=== PATIENT | female | born 1965 | race Caucasian/White ===

== ENCOUNTER 2017-05-04 12:34 | Inpatient (IN) | payer OTHER ==
[2017-05-04] VITALS (14 sets, daily range): BP systolic 121–152; BP diastolic 58–86; PULSE 62–84; RESP 17–22; Ht 152.4 cm; Wt 75.5 kg
[~2017-05-04] VITALS: Ht 152.4 cm; Wt 75.5 kg
[~2017-05-04 12:34] MED LIST: ASPIRIN 81 MG TAB ONE
[2017-05-04] MEDS ORDERED: ASPIRIN 325 MG TAB PO STA (12:55)
[2017-05-04 13:08] LABS: WHITE BLOOD COUNT 8.2 10^3/ul (4.8-10.8)
[2017-05-04 13:09] LABS: BASOPHIL # 0.1 10^3/ul (0.0-0.1); BASOPHILS % 0.9 % (0.0-2.0); EOSINOPHILS # 0.1 10^3/ul (0.0-0.5); HEMATOCRIT 44.3 % (37.0-47.0); LYMPHOCYTES # 3.3 10^3/ul (0.8-2.9); LYMPHOCYTES % 39.9 % (15.0-51.0); MEAN CORPUSCULAR HEMOGLOBIN 29.9 pg (29.0-33.0); MEAN CORPUSCULAR HGB CONC 33.9 g/dl (32.0-37.0); MEAN CORPUSCULAR VOLUME 88.2 fl (82.0-101.0); MEAN PLATELET VOLUME 11.3 fl (7.4-10.4); MONOCYTE # 0.6 10^3/ul (0.3-0.9); MONOCYTES % 6.9 % (0.0-11.0); NEUTROPHILS % 51.1 % (39.0-77.0); PLATELET COUNT 250 10^3/UL (140-415); RED BLOOD COUNT 5.02 10^6/ul (4.20-5.40); RED CELL DISTRIBUTION WIDTH 12.6 % (11.5-14.5)
[2017-05-04 13:21] LABS: INR 0.92; PROTIME 12.4 Sec (12.2-14.2)
[2017-05-04 13:22] LABS: PARTIAL THROMBOPLASTIN TIME 28.7 Sec (25.0-35.0)
[2017-05-04 13:24] LABS: ANION GAP 16 (8-16); BLOOD UREA NITROGEN 12 mg/dl (7-20); CALCIUM 9.8 mg/dl (8.4-10.2); CARBON DIOXIDE 25 mmol/L (21-31); CHLORIDE 104 mmol/L (97-110); CREATININE 0.57 mg/dl (0.44-1.00); GLUCOSE 77 mg/dl (70-220); SODIUM 141 mmol/L (135-144)
--- NOTE | 2017-05-04 13:25 | ERA ---
ER Documentation Chief Complaint Date/Time DATE: 05/04/17 TIME: 13:22 Chief Complaint pt bib self with c/o chest pain starting yesterday, same last wk HPI This 51-year-old female presents to the emergency room for evaluation of chest pain. This patient stated that her chest pain started 1 week ago and has been intermittent worse with exertion. She states that it is located in the center of her chest and describes as a pressure-like sensation with mild radiation to her left arm associated with mild shortness of breath and nausea. This patient presented to the emergency room waiting room where she had an EKG done that showed ST elevation MS ROS All systems reviewed and are negative except as per history of present illness. Allergies Allergies: Coded Allergies: Penicillins (Verified Allergy, Unknown, 05/04/17) PMhx/Soc Medical and Surgical Hx: pt denies Medical Hx, pt denies Surgical Hx Hx Alcohol Use: No Hx Substance Use: No Hx Tobacco Use: No Smoking Status: Never smoker Physical Exam Vitals Vital Signs Date Time Temp Pulse Resp B/P Pulse Ox O2 Delivery O2 Flow Rate FiO2 05/04/17 13:09 84 18 168/85 100 Nasal Cannula 2.0 05/04/17 12:55 Nasal Cannula 2 05/04/17 12:39 98.3 65 18 170/77 100 Physical Exam INITIAL VITAL SIGNS: Reviewed by me GENERAL: The patient is well developed and appropriate for usual state of health in no apparent distress HEENT: Pupils equal, round, and reactive to light. EOMI. There is no scleral icterus. NECK: C-spine is soft and supple, there is no meningismus. There is no cervical lymphadenopathy. LUNGS: Clear to auscultation bilaterally. There are no rales, wheezes or rhonchi. HEART: Regular rate and rhythm, no murmurs, clicks, rubs or gallops. ABDOMEN: Soft, non-tender, non-distended. There are bowel sounds in all four quadrants. No rebound or guarding. EXTREMITIES: There is no peripheral cyanosis or edema. No focal swelling or erythema. NEUROLOGICAL: The patient moves all four extremities with 5/5 strength. Cranial nerves II - XII are intact. Normal gait. Alert and oriented SKIN: There is no apparent rash or petechiae. HEME/LYMPHATIC: There is no evidence of excessive bruising or lymphedema. PSYCHIATRIC: The patient does not appear anxious or depressed. Result Diagram: 05/04/17 1300 Results 24 hrs Laboratory Tests Test 05/04/17 13:00 White Blood Count 8.210^3/ul Red Blood Count 5.0210^6/ul Hemoglobin 15.0g/dl Hematocrit 44.3% Mean Corpuscular Volume 88.2fl Mean Corpuscular Hemoglobin 29.9pg Mean Corpuscular Hemoglobin Concent 33.9g/dl Red Cell Distribution Width 12.6% Platelet Count 78177^3/UL Mean Platelet Volume 11.3fl Neutrophils % 51.1% Lymphocytes % 39.9% Monocytes % 6.9% Eosinophils % 1.0% Basophils % 0.9% Nucleated Red Blood Cells % 0.0/100WBC Neutrophils # (Manual) 4.210^3/ul Lymphocytes # 3.310^3/ul Monocytes # 0.610^3/ul Eosinophils # 0.110^3/ul Basophils # 0.110^3/ul Nucleated Red Blood Cells # 0.010^3/ul Prothrombin Time 12.4Sec Prothrombin Time Ratio 1.0 INR International Normalized Ratio 0.92 Activated Partial Thromboplast Time 28.7Sec Current Medications Medications (Trade) Dose Ordered Sig/Jesi Route PRN Reason Start Time Stop Time Status Last Admin Dose Admin Aspirin (Aspirin) 325 mg ONCE STAT PO 05/04/17 12:55 05/04/17 12:56 DC 05/04/17 13:17 Procedures/MDM EKG: Rate/Rhythm: Acute MS QRS, ST, T-waves: Acute inferior ST elevation MS Impression: Acute inferior ST elevation MS Chest X-ray 1V Interpreted by me: Soft Tissue: No acute abnormalities Bones: No acute abnormalities Mediastinum/Cardiac Silhouette/Lungs: [No acute abnormalities]\ This 51-year-old female presents to the ER for evaluation of chest pain which is been intermittent for the past week worse with exertion and centralized. When this patient arrived in the waiting room she did have an EKG done. She arrived at 12:33 PM and had an EKG done at 12:[address] elevation MS. I did speak with this patient and she states that she has no family history of any heart disease, she has no medical problems and is on any medications. A code STEMI was called at 12:49 PM and I spoke to our back sizer Dr. Holt at 12:15 PM. He accepts the patient. The patient went to [facility] 1:21 PM. There was a delay in getting the patient to the [facility] due to the fact that there was another patient on the [facility] table which had to be removed. This patient will be admitted under panel physician Dr. Alvarado Critical Care: Excluding all billable procedures Time: 33 minutes Treatments/Evaluations: Close monitoring and treatment of unstable vital signs, cardiorespiratory, and neurologic status, while maintaining tight balance of fluid, respiratory, and cardiac interventions. Departure Diagnosis: Primary Impression: ST elevation MS (STEMI) Additional Impression: Chest pain Condition: Serious FERNANDOBEAR MCNEILL May 04, 2017 13:25
--- NOTE | 2017-05-04 13:29 | RADRPT ---
PROCEDURE: Chest x-ray CLINICAL INDICATION: Chest pain TECHNIQUE: Chest single view COMPARISON: None FINDINGS: The heart is normal in size. The pulmonary vessels are normal in caliber. The lungs are clear. Th e costophrenic angles are sharp. The visualized bony thorax is unremarkable. IMPRESSION: No acute cardiopulmonary disease. RPTAT: HH .Emery Chu MD, Date Time Electronically viewed and signed by .Emery Chu MD, MD on 05/04/2017 13:29 .W/
[2017-05-04] MEDS ORDERED: NITROGLYCERIN (SL) 0.4 MG TAB SL ONE (13:30)
[2017-05-04] MEDS ORDERED: MIDAZOLAM 1 MG/ML 2 ML INJ ONE ×2 (13:36→14:04)
[2017-05-04 13:37] LABS: TROPONIN-I < 0.012 ng/ml (0.00-0.12)
[2017-05-04] MEDS ORDERED: LIDOCAINE 1% (MDV) 20 ML INJ ONE (13:38)
[2017-05-04] MEDS ORDERED: IODIXANOL LOCM 100 ML BTL ONE (13:38)
[2017-05-04] MEDS ORDERED: FENTAnyl 50 MCG/ML VIAL ONE ×2 (13:38→14:20)
[2017-05-04] MEDS ORDERED: VERAPAMIL 5 MG INJ ONE (13:43)
[2017-05-04] MEDS ORDERED: NITROGLYCERIN (IC) 100 MCG/ML INJ ONE (13:43)
[2017-05-04] MEDS ORDERED: SOD CHLORIDE 0.9% 1,000 ML IV SCH (14:18)
[2017-05-04] MEDS ORDERED: AL HYDROX/MG HYDROX/SIMETH 30 ML CUP PO PRN (14:30)
[2017-05-04] MEDS ORDERED: ONDANSETRON 4 MG INJ IV PRN ×2 (14:30→16:00)
[2017-05-04] MEDS ORDERED: ACETAMINOPHEN 325 MG TAB PO PRN ×2 (14:30→16:00)
--- NOTE | 2017-05-04 14:39 | OPR ---
Date/Time of Note Date/Time of Note DATE: 05/04/17 TIME: 14:35 Operative Report Procedure Date: May 04, 2017 Preoperative Diagnosis Chest pain Abnormal ECG Postoperative Diagnosis Minimal nonobstructive coronary artery disease Operation Performed Left heart catheterization Right and left coronary angiogram Interpretation and supervision of right and left coronary angiogram Left ventricular pressure measurements Conscious sedation Right radial artery approach Anesthesia Type: other (Conscious sedation) Estimated Blood Loss: minimal Complications: no Pt Condition Post Procedure: stable Operative\Procedure Findings Left main is a large caliber vessel with no significant disease LAD is a medium caliber vessel with no significant disease Circumflex is a medium caliber vessel and appears codominant with no significant disease RCA is a medium caliber vessel and codominant with no significant disease Procedure Description Patient brought to the Super[facility] after informed consent. Patient was prepped and draped as per protocol. Right radial access was obtained using ultrasound guidance. A 5/6 Tongan sheath was used in the right radial artery. Initially a 5 Tongan JL 3.5 diagnostic catheter was used in attempts to engage left main but unsuccessful. We next switched to a 5 Tongan JL 3.0 diagnostic catheter. The catheter fell in the left ventricle and pressure measurements were obtained as well as pullback. We next performed an angiogram of the left system. We next used a 6 [place] JR4 guide catheter in the RCA and antrum was performed. There is no evidence of any obstructive epicardial coronary artery disease. All catheters and wires removed. There was no immediate complications. Harvey Holt DO May 04, 2017 14:39
--- NOTE | 2017-05-04 14:44 | CONS ---
Date/Time of Note Date/Time of Note DATE: 05/04/17 TIME: 14:39 Assessment/Plan Assessment/Plan Additional Assessment/Plan Chest pain with abnormal ECG Minimal nonobstructive coronary artery disease Transient visual loss Dyslipidemia -Patient with symptoms of chest discomfort and abnormalities ECG as mentioned above. Patient underwent emergent cardiac catheterization which demonstrated minimal nonobstructive coronary artery disease. Patient also with transient vision loss during this episode. Will obtain CT head. Continue aspirin therapy , telemetry monitoring, carotid Doppler, echocardiogram. Would concurrently evaluate other noncardiac causes of patient's symptoms. Consultation Date/Type/Reason Admit Date/Time Type of Consultation: cv Reason for Consultation Chest pain and abnormal ECG Hx of Present Illness This is a 51-year-old female with past medical history of dyslipidemia who presents with 3-4 days of worsening chest discomfort with the worst being today. Chest pain is pressure-like and 9 out of 10 intensity. Today, chest pain was so severe the patient with concurrent transient vision loss at the same time. The vision loss resolved the chest pain continued. Because of worsening symptoms, she came to the emergency room for evaluation. Chest pain was associated with shortness of breath and occasional nausea. Denies any fevers or chills, cough, abdominal pain. 12 point review of systems was performed with all pertinent positives and negatives mentioned above and all else is negative Past Medical History Medical History: high cholesterol Family History Significant Family History: no pertinent family hx Social History Alcohol Use: none Smoking Status: Never smoker Exam/Review of Systems Vital Signs Vitals Vital Signs Date Time Temp Pulse Resp B/P Pulse Ox O2 Delivery O2 Flow Rate FiO2 05/04/17 13:09 84 18 168/85 100 Nasal Cannula 2.0 05/04/17 12:39 98.3 Exam No apparent distress Constitutional: alert, oriented Head: normocephalic Respiratory: clear to auscultation, normal air movement Cardiovascular: other (S1-S2 heard), regular rate and rhythm Gastrointestinal: bowel sounds, non-tender, soft Extremities: other (No edema) Results Result Diagram: 05/04/17 1300 05/04/17 1300 Results 24 hrs Laboratory Tests Test 05/04/17 13:00 White Blood Count 8.2 Red Blood Count 5.02 Hemoglobin 15.0 Hematocrit 44.3 Mean Corpuscular Volume 88.2 Mean Corpuscular Hemoglobin 29.9 Mean Corpuscular Hemoglobin Concent 33.9 Red Cell Distribution Width 12.6 Platelet Count 250 Mean Platelet Volume 11.3 H Neutrophils % 51.1 Lymphocytes % 39.9 Monocytes % 6.9 Eosinophils % 1.0 Basophils % 0.9 Nucleated Red Blood Cells % 0.0 Neutrophils # (Manual) 4.2 Lymphocytes # 3.3 H Monocytes # 0.6 Eosinophils # 0.1 Basophils # 0.1 Nucleated Red Blood Cells # 0.0 Prothrombin Time 12.4 Prothrombin Time Ratio 1.0 INR International Normalized Ratio 0.92 Activated Partial Thromboplast Time 28.7 Sodium Level 141 Potassium Level 4.0 Chloride Level 104 Carbon Dioxide Level 25 Anion Gap 16 Blood Urea Nitrogen 12 Creatinine 0.57 Glucose Level 77 Calcium Level 9.8 Troponin I < 0.012 Medications Medications Current Medications Miscellaneous Information (* Miscellaneous Pharmacy Order) HOLD all METFORMIN ... ONCE XX ; Start 05/04/17 at 14:30; Stop 05/06/17 at 14:29 Acetaminophen (Tylenol Tab) 650 mg Q4H PRN PO NON-CARDIAC PAIN LEVEL (1-3); Start 05/04/17 at 14:30 Al Hydrox/Mg Hydrox/Simethicone (Mag-Al Plus) 30 ml Q4H PRN PO GASTROINTESTINAL UPSET; Start 05/04/17 at 14:30 Ondansetron HCl 4 mg 4 mg Q4H PRN IV NAUSEA AND/OR VOMITING; Start 05/04/17 at 14:30 Sodium Chloride (NS) 1,000 ml @ 75 mls/hr [id number] IV ; Start 05/04/17 at 14:18 ; Stop 05/04/17 at 19:17 Aspirin (Aspirin) 81 mg DAILY PO ; Start 05/05/17 at 09:00 Procedures Procedures ECG demonstrates sinus rhythm at 65 bpm, [address] elevation in inferior leads and T-wave inversions in 1 and aVL Harvey Holt DO May 04, 2017 14:44
--- NOTE | 2017-05-04 15:19 | RADRPT ---
PROCEDURE: CT brain without contrast CLINICAL INDICATION: Transient vision loss TECHNIQUE: CT of the brain without contrast was performed on a multidetector CT scanner, with multi planar reformats. One or more of the following dose reduction techniques were used: Automated expos ure control, adjustment in mA and / or kV according to patient size, use of iterative reconstructive technique. CTDIvol = 45 mGy; DLP = 720 mGy-cm. COMPARISON: None available FINDINGS: No acute intracranial hemorrhage is identified. No extra-axial fluid collection is seen. There is no mass effect. No midline shift is identified. Ventricles and sulci are within normal limits for size and configuration. The density of the brain is within normal limits. Jean-white differentiation is preserved. The pallavi la is noted to be partly empty and enlarged. Calvarium is intact. Mastoid air cells and imaged paranasal sinuses grossly clear. IMPRESSION: 1. No evidence of acute intracranial pathology. 2. Partly empty, enlarged sella noted. 3. Otherwise unremarkable noncontrast CT the brain. RPTAT: VV .Danny Carmona MD, MD Date Time Electronically viewed and signed by .Danny Carmona MD, on 05/04/2017 15:19 .O/
[2017-05-04] MEDS ORDERED: NA PHOSPHATE/BIPHOS 133 ML ENEMA PR PRN (16:00)
[2017-05-04] MEDS ORDERED: HYDROCODONE/APAP (5/325) TAB PO PRN (16:00)
[2017-05-04] MEDS ORDERED: MAGNESIUM HYDROXIDE 30ML CUP PO PRN (16:00)
[2017-05-04] MEDS ORDERED: LORAZEPAM 2 MG INJ IV PRN (16:00)
[2017-05-04] MEDS ORDERED: NITROGLYCERIN (SL) 0.4 MG TAB SL PRN (16:00)
[2017-05-04] MEDS ORDERED: ALBUTEROL/IPRATROPIUM (NEB) 3 ML AMP HHN PRN (16:00)
[2017-05-04] MEDS ORDERED: NACL 0.9% 3 ML SYG IV SCH (16:00)
[2017-05-04] MEDS ORDERED: morphine 2 MG INJ IV PRN (16:00)
[2017-05-04] MEDS ORDERED: DOCUSATE SODIUM 100 MG CAP PO PRN (16:00)
[2017-05-04] MEDS ORDERED: hydrALAzine 20 MG INJ IV PRN (16:00)
--- NOTE | 2017-05-04 16:27 | RADRPT ---
PROCEDURE: US Carotids. CLINICAL INDICATION: Transient vision loss TECHNIQUE: Multiple sonographic of the carotid arteries were obtained utilizing mtz scale imaging . Color and Doppler imaging was performed. The images were reviewed on a PACS workstation. COMPARISON: No prior studies are available for comparison. FINDINGS: Location Right Left CCA 58 cm/sec 70 cm/sec Prox ICA 41 cm/sec 38 cm/sec Mid ICA 43 cm/sec 53 cm/sec Dist ICA 39 cm/sec 56 cm/sec ECA 45 cm/sec 65 cm/sec ICA/CCA 0.8 0.9 Antegrade flow is seen within the vertebral arteries bilaterally. No significant plaque is seen with in the carotid system bilaterally. No hemodynamically significant stenosis or occlusion is identifi ed. IMPRESSION: 1. No evidence for hemodynamically significant stenosis - validated velocity measurements with angio graphic measurements, velocity criteria are extrapolated from diameter data as defined by the Societ y of Radiologists in Ultrasound Consensus Conference Radiology 2003; 229;340-346. This study does i ndirectly reference the measurement of the distal ICA diameter as the denominator for stenosis measu rement. 2. Antegrade flow seen within the vertebral arteries bilaterally. SRU Consensus Conference Criteria for the Diagnosis of Carotid Artery Stenosis Degree of Stenosis, % ICA PSV, cm/sec Plaque Estimate, % ICA/CCA PSV Ratio Normal <125 None <2.0 <50 <125 <50 <2.0 50 69 125-230 >50 2.0-4.0 >70 but less than near occlusion >230 >50 <4.0 Near occlusion High, low, or undetectable Visible Variable Total occlusion Undetectable Visible, no detectable lumen Not applicable *Cartoid artery stenosis: mtz-scale and Doppler US diagnosis. Society of Radiologists in Ultrasound Consensus Conference. Radiology 2003; 229: 340-346 RPTAT: JJ .Satinder Mcgovern MD, Date Time Electronically viewed and signed by .Satinder Mcgovern MD, MD on 05/04/2017 16:26 .A/
--- NOTE | 2017-05-04 16:53 | RADRPT ---
Echocardiogram Report Patient Name: KEVIN CORNEJO Gender: Female Date: 1965 Study Date: 04-May-2017 Fish Flipper: Tamika Low RDCS Location: [facility] Ref. Physician: HARVEY CEDEÑO Quality: Good Procedures: Transthoracic echocardiogram with complete 2D, M-Mode, and doppler examination. Indications: Chest Pain. 2D/M Mode Doppler Measurement Value Normal Ranges Measurement Value Normal Ranges LVIDd 2D 3.3 3.5 - 5.6 cm AV Peak Andrzej 1.4 m/sec LVIDs 2D 2.0 2.1 - 4.1 cm AV Peak PG 7.5 mmHg LVPWd 2D 1.0 0.6 - 1.1 cm LVOT Peak Andrzej 0.9 m/sec IVSd 2D 1.1 0.6 - 1.1 cm LVOT Peak PG 3.4 mmHg AoR Diam 2D 2.7 2.0 - 3.7 cm MV E Peak Andrzej 0.7 m/sec EDV 2D 45.0 cm3 MV A Peak Andrzej 0.8 m/sec ESV 2D 8.3 cm3 MV E/A 0.9 LA Dimen 2D 3.1 2.3 - 4.0 cm MV Decel Time 200 msec MV Decel Edmonson 3 MV E/A 0.9 Findings Left Ventricle: Normal left ventricular systolic function. Normal left ventricular cavity size. Mild concentric left ventricular hypertrophy. Ejection fraction is visually estimated at 65 %. Tissue Doppler/Mitral Doppler indices are consistent with impaired relaxation (Stage I diastolic dysfunction). Right Ventricle: Normal right ventricular size. Normal right ventricular systolic function. Left Atrium: The left atrium is normal in size. Right Atrium: The right atrium is normal in size. Mitral Valve: Mitral valve leaflets appear mildly thickened. Mild mitral annular calcification. Trace mitral regurgitation. Aortic Valve: Normal appearance of the aortic valve. No significant aortic stenosis or insufficiency. Tricuspid Valve: Normal appearance of the tricuspid valve. Unable to obtain RVSP due to minimal presence of tricuspid regurgitation. Pulmonic Valve: Normal pulmonic valve appearance. Pericardium: Normal pericardium with no significant pericardial effusion. Aorta: Normal aortic root. IVC: Normal size and normal respiratory collapse consistent with normal right atrial pressure. Conclusions 1.Normal left ventricular systolic function. Normal left ventricular cavity size. Mild concentric left ventricular hypertrophy. Ejection fraction is visually estimated at 65 %. Tissue Doppler/Mitral Doppler indices are consistent with impaired relaxation (Stage I diastolic dysfunction). 2.Normal right ventricular size. Normal right ventricular systolic function. 3.The left atrium is normal in size. 4.The right atrium is normal in size. 5.No significant valvular stenosis or regurgitation seen. 6.Normal pericardium with no significant pericardial effusion. Electronically Signed By: Harvey Cedeño 04-May-2017 16:52:32 -0700 Patient Name: KEVIN CORNEJO Study Date: 04-May-[id number]
--- NOTE | 2017-05-04 19:13 | HP ---
Date/Time of Note Date/Time of Note DATE: 05/04/17 TIME: 19:09 Assessment/Plan VTE Prophylaxis VTE Prophylaxis Intervention: SCD's Lines/Catheters IV [facility]ter Type [facility]from [facility] Saline Lock Assessment/Plan Chief Complaint/Hosp Course Assessment and plan: 51-year-old female who presents with chest pain 1 week with signs of possible ST elevation TN, status post left heart cath with clean coronaries found. 1. Chest pain: Admit patient to telemetry floor, follow-up cardiology recommendations. Check TSH A1c lipid panel. Continue to monitor heart rate very carefully. 2. Near syncope: Head CT on admission was negative, continue to monitor for now. 3. High cholesterol: Check lipid panel. 4. Neck pain: Monitor for now, no signs of any fevers. Problems: HPI/ROS Admit Date/Time Admit Date/Time Hx of Present Illness 51-year-old female with no significant past medical history presents to the emergency room for evaluation of chest pain. This patient stated that her chest pain started 1 week ago and has been intermittent worse with exertion. She states that it is located in the center of her chest and describes as a pressure-like sensation with mild radiation to her left arm associated with mild shortness of breath and nausea. She is also been complaining of mild "blackout" although has not had any any real syncopal event. Patient also had some nausea symptoms, denied any upper or lower GI bleeding, no fevers or chills , no diarrhea or constipation, no headaches or vision changes this patient presented to the emergency room waiting room where she had an EKG done that showed ST elevation TN, and patient was taken to the Clinical Quality Assurance Specialist by cardiology team although there were no significant findings of any blockage after cardiac cath earlier today. Denies any prior history of any strokes or heart attacks. PMH/Family/Social Past Medical History Medical History: high cholesterol Past Surgical History Past Surgical Hx: other (Tubal ligation) Family History Significant Family History: other (Father: Heart problems. Mother: Diabetes, hypertension) Social History Alcohol Use: none Smoking Status: Never smoker Drug Use: none Exam/Review of Systems Vital Signs Vitals Vital Signs Date Time Temp Pulse Resp B/P Pulse Ox O2 Delivery O2 Flow Rate FiO2 05/04/17 17:39 73 05/04/17 17:30 98.6 18 137/77 99 Room Air 05/04/17 13:09 2.0 Exam Exam GENERAL: The patient is well developed and appropriate for usual state of health in no apparent distress HEENT: Pupils equal, round, and reactive to light. EOMI. There is no scleral icterus. NECK: C-spine is soft and supple, there is no meningismus. There is no cervical lymphadenopathy. LUNGS: Clear to auscultation bilaterally. There are no rales, wheezes or rhonchi. HEART: Regular rate and rhythm, no murmurs, clicks, rubs or gallops. ABDOMEN: Soft, non-tender, non-distended. There are bowel sounds in all four quadrants. No rebound or guarding. EXTREMITIES: There is no peripheral cyanosis or edema. No focal swelling or erythema. NEUROLOGICAL: The patient moves all four extremities with 5/5 strength. Cranial nerves II - XII are intact. Normal gait. Alert and oriented HEME/LYMPHATIC: There is no evidence of excessive bruising or lymphedema. PSYCHIATRIC: The patient does not appear anxious or depressed. Labs Result Diagram: 05/04/17 1300 05/04/17 1300 Medications Medications Current Medications Miscellaneous Information (* Miscellaneous Pharmacy Order) HOLD all METFORMIN ... ONCE XX ; Start 05/04/17 at 14:30; Stop 05/06/17 at 14:29 Al Hydrox/Mg Hydrox/ Simethicone 30 ml 30 ml Q4H PRN PO GASTROINTESTINAL UPSET ; Start 05/04/17 at 14:30 Sodium Chloride (NS) 1,000 ml @ 75 mls/hr [id number] IV ; Start 05/04/17 at 14:18 ; Stop 05/04/17 at 19:17 Aspirin (Aspirin) 81 mg DAILY PO ; Start 05/05/17 at 09:00 Ondansetron HCl (Zofran Inj) 4 mg Q6H PRN IV NAUSEA AND/OR VOMITING; Start at 16:00 Acetaminophen (Tylenol Tab) 650 mg Q6H PRN PO PAIN LEVEL 1-3 OR FEVER; Start at 16:00 Acetaminophen/ Hydrocodone Bitart ([place] (5/325)) 1 tab Q6H PRN PO MODERATE PAIN LEVEL 4-6; Start 05/04/17 at 16:00 Morphine Sulfate (morphine) 2 mg Q4H PRN IV SEVERE PAIN LEVEL 7-10; Start 05/04 at 16:00 Docusate Sodium (Colace) 100 mg Q12H PRN PO CONSTIPATION; Start 05/04/17 at 16: 00 Magnesium Hydroxide (Milk Of Mag) 30 ml DAILY PRN PO CONSTIPATION; Start at 16:00 Sodium Biphosphate/ Sodium Phosphate (Fleet Enema) 133 ml DAILY PRN SC CONSTIPATION; Start 05/04/17 at 16:00 Lorazepam (Ativan) 0.5 mg Q6H PRN IV ANXIETY; Start 05/04/17 at 16:00 Hydralazine HCl (Apresoline) 10 mg Q6H PRN IV ELEVATED BLOOD PRESSURE; Start at 16:00 Nitroglycerin (Nitroglycerin (Sl Tab) 0.4 Mg) 1 tab Q5M PRN SL ANGINA; Start at 16:00 SLICK ELLINGTON May 04, 2017 19:13
[2017-05-04 19:29] LABS: CREATINE KINASE 54 IU/L (23-200)
[2017-05-04 19:44] LABS: CK-MB 0.92 ng/ml (0.0-2.4)
[2017-05-04 19:59] LABS: TROPONIN-I < 0.012 ng/ml (0.00-0.12)
[2017-05-05] VITALS (7 sets, daily range): BP systolic 120–132; BP diastolic 61–77; PULSE 58–71; RESP 18–19
[2017-05-05 07:10] LABS: CHOL/HDL RATIO 2.9 RATIO
[2017-05-05 07:41] LABS: THYROID STIMULATING HORMONE 2.65 MIU/L (0.465-4.680)
[2017-05-05] MEDS ORDERED: ASPIRIN 81 MG TAB PO SCH (09:00)
[2017-05-05 09:05] LABS: BASOPHILS % 0.7 % (0.0-2.0); EOSINOPHILS # 0.1 10^3/ul (0.0-0.5); EOSINOPHILS % 1.4 % (0.0-7.0); HEMATOCRIT 41.1 % (37.0-47.0); HEMOGLOBIN 14.1 g/dl (12.0-16.0); LYMPHOCYTES # 1.9 10^3/ul (0.8-2.9); LYMPHOCYTES % 31.9 % (15.0-51.0); MEAN CORPUSCULAR HEMOGLOBIN 30.4 pg (29.0-33.0); MEAN CORPUSCULAR HGB CONC 34.3 g/dl (32.0-37.0); MEAN CORPUSCULAR VOLUME 88.6 fl (82.0-101.0); MONOCYTE # 0.5 10^3/ul (0.3-0.9); MONOCYTES % 7.8 % (0.0-11.0); PLATELET COUNT 278 10^3/UL (140-415); RED BLOOD COUNT 4.64 10^6/ul (4.20-5.40); RED CELL DISTRIBUTION WIDTH 12.8 % (11.5-14.5); WHITE BLOOD COUNT 5.9 10^3/ul (4.8-10.8)
[2017-05-05 09:13] LABS: CALCIUM 9.2 mg/dl (8.4-10.2); CREATININE 0.61 mg/dl (0.44-1.00); MAGNESIUM 1.8 mg/dl (1.7-2.5); POTASSIUM 4.5 mmol/L (3.5-5.1)
--- NOTE | 2017-05-05 11:09 | PDOCDIS ---
Discharge Instructions CONDITION Patient Condition: Stable HOME CARE INSTRUCTIONS: Special Diet: Low Chol/Low Fat/2gNA ACTIVITY: Activity Restrictions: Slowly Increase Activity FOLLOW UP/APPOINTMENTS Follow-up Plan Please follow-up with your regular doctor in the clinic in the next 1 week. SLICK ELLINGTON May 05, 2017 11:09
--- NOTE | 2017-05-05 11:13 | DS ---
Date/Time of Note Date/Time of Note DATE: 05/05/17 TIME: 11:10 Discharge Summary Admission/Discharge Info Admit Date/Time May 04, 2017 at 17:05 Discharge Date/Time Discharge Diagnosis 1. Chest pain: Had questionable ST elevation PA, but left heart cath showed clean coronaries. Ruled out for acute coronary syndrome. 2. Near syncope: Head CT on admission was negative-resolved 3. High cholesterol: Normal lipid panel. Patient Condition: Stable Hospital Course 51-year-old female with no significant past medical history presents to the emergency room for evaluation of chest pain. This patient stated that her chest pain started 1 week ago and has been intermittent worse with exertion. She states that it is located in the center of her chest and describes as a pressure-like sensation with mild radiation to her left arm associated with mild shortness of breath and nausea. She is also been complaining of mild "blackout" although has not had any any real syncopal event. Patient also had some nausea symptoms, denied any upper or lower GI bleeding, no fevers or chills , no diarrhea or constipation, no headaches or vision changes. Denies any prior history of any strokes or heart attacks. She had an EKG done that showed possible ST elevation PA, and patient was taken to the [facility] by cardiology team although there were no significant findings of any blockage after cardiac cath. Her labs including her A1c, lipid panel, thyroid panel were normal. She had no more chest pain symptoms while staying in the hospital overnight. She was able to ambulate and tolerated p.o. diet. Once she is cleared by cardiology team today she will be discharged home today in improved condition. Home Meds No Active Prescriptions or Reported Meds Primary Care Provider [facility] Time spent on discharge: > 30 minutes Pending Labs Laboratory Tests Test 05/04/17 13:00 05/04/17 18:57 05/05/17 06:18 White Blood Count 8.210^3/ul (4.8-10.8) 5.910^3/ul (4.8-10.8) Red Blood Count 5.0210^6/ul (4.20-5.40) 4.6410^6/ul (4.20-5.40) Hemoglobin 15.0g/dl (12.0-16.0) 14.1g/dl (12.0-16.0) Hematocrit 44.3% (37.0-47.0) 41.1% (37.0-47.0) Mean Corpuscular Volume 88.2fl (82.0-101.0) 88.6fl (82.0-101.0) Mean Corpuscular Hemoglobin 29.9pg (29.0-33.0) 30.4pg (29.0-33.0) Mean Corpuscular Hemoglobin Concent 33.9g/dl (32.0-37.0) 34.3g/dl (32.0-37.0) Red Cell Distribution Width 12.6% (11.5-14.5) 12.8% (11.5-14.5) Platelet Count 40626^3/UL (140-415) 20612^3/UL (140-415) Mean Platelet Volume 11.3fl (7.4-10.4) 12.0fl (7.4-10.4) Neutrophils % 51.1% (39.0-77.0) 58.0% (39.0-77.0) Lymphocytes % 39.9% (15.0-51.0) 31.9% (15.0-51.0) Monocytes % 6.9% (0.0-11.0) 7.8% (0.0-11.0) Eosinophils % 1.0% (0.0-7.0) 1.4% (0.0-7.0) Basophils % 0.9% (0.0-2.0) 0.7% (0.0-2.0) Nucleated Red Blood Cells % 0.0/100WBC (0.0-0.0) 0.0/100WBC (0.0-0.0) Neutrophils # (Manual) 4.210^3/ul (1.7-7.5) 3.410^3/ul (1.7-7.5) Lymphocytes # 3.310^3/ul (0.8-2.9) 1.910^3/ul (0.8-2.9) Monocytes # 0.610^3/ul (0.3-0.9) 0.510^3/ul (0.3-0.9) Eosinophils # 0.110^3/ul (0.0-0.5) 0.110^3/ul (0.0-0.5) Basophils # 0.110^3/ul (0.0-0.1) 0.010^3/ul (0.0-0.1) Nucleated Red Blood Cells # 0.010^3/ul (0.0-0.0) 0.010^3/ul (0.0-0.0) Prothrombin Time 12.4Sec (12.2-14.2) Prothrombin Time Ratio 1.0 INR International Normalized Ratio 0.92 Activated Partial Thromboplast Time 28.7Sec (25.0-35.0) Sodium Level 141mmol/L (135-144) 142mmol/L (135-144) Potassium Level 4.0mmol/L (3.5-5.1) 4.5mmol/L (3.5-5.1) Chloride Level 104mmol/L (97-110) 102mmol/L (97-110) Carbon Dioxide Level 25mmol/L (21-31) 27mmol/L (21-31) Anion Gap 16 (8-16) 18 (8-16) Blood Urea Nitrogen 12mg/dl (7-20) 13mg/dl (7-20) Creatinine 0.57mg/dl (0.44-1.00) 0.61mg/dl (0.44-1.00) Glucose Level 77mg/dl (70-220) 95mg/dl (70-220) Calcium Level 9.8mg/dl (8.4-10.2) 9.2mg/dl (8.4-10.2) Troponin I < 0.012ng/ml (0.00-0.12) < 0.012ng/ml (0.00-0.12) Creatine Kinase 54IU/L (23-200) Creatine Kinase Index 1.7 Creatinine Kinase MB (Mass) 0.92ng/ml (0.0-2.4) Free Thyroxine 1.07ng/dl (0.64-1.79) Hemoglobin A1c 5.5% (0-5.9) Phosphorus Level 4.0mg/dl (2.5-4.9) Magnesium Level 1.8mg/dl (1.7-2.5) Triglycerides Level 73mg/dl (0-149) Cholesterol Level 174mg/dl (100-200) LDL Cholesterol, Calculated 100mg/dl HDL Cholesterol 59mg/dl (37-92) Cholesterol/HDL Ratio 2.9RATIO Thyroid Stimulating Hormone (TSH) 2.650MIU/L (0.465-4.680) SLICK ELLINGTON May 05, 2017 11:13
--- NOTE | 2017-05-05 14:30 | CONS ---
Date/Time of Note Date/Time of Note DATE: 05/05/17 TIME: 14:28 Assessment/Plan Assessment/Plan Additional Assessment/Plan Chest pain with minimal nonobstructive coronary artery disease cardiac catheterization 05/04/2017 Preserved ejection fraction Dyslipidemia -Patient denies any further chest pain. Serial cardiac enzymes remain negative , as mentioned previously, cardiac catheterization with no evidence of obstructive epicardial coronary artery disease. Patient's symptoms do not appear cardiac in origin. No further inpatient cardiac workup needed at the current time. Consultation Date/Type/Reason Admit Date/Time May 04, 2017 at 17:05 Initial Consult Date Type of Consultation: cv 24 HR Interval Summary Free Text/Dictation Patient denies any further chest pain, palpitations, shortness of breath or dizziness Exam/Review of Systems Vital Signs Vitals Vital Signs Date Time Temp Pulse Resp B/P Pulse Ox O2 Delivery O2 Flow Rate FiO2 05/05/17 12:25 60 05/05/17 11:22 98.8 18 132/75 98 05/04/17 17:30 Room Air 05/04/17 13:09 2.0 Intake and Output 05/04/17 05/04/17 05/05/17 15:00 23:00 07:00 Intake Total 400 ml Balance 400 ml Exam No apparent distress Constitutional: alert, oriented Head: normocephalic Respiratory: clear to auscultation, normal air movement Cardiovascular: other (S1-S2 heard), regular rate and rhythm Gastrointestinal: bowel sounds, non-tender, soft Extremities: other (No edema, right wrist with no hematoma, +2 radial pulse) Results Result Diagram: 05/05/17 0618 05/05/17 0618 Results 24 hrs Laboratory Tests Test 05/04/17 18:57 05/05/17 06:18 Creatine Kinase 54 Creatine Kinase Index 1.7 Creatinine Kinase MB (Mass) 0.92 Troponin I < 0.012 Free Thyroxine 1.07 White Blood Count 5.9 # Red Blood Count 4.64 Hemoglobin 14.1 Hematocrit 41.1 Mean Corpuscular Volume 88.6 Mean Corpuscular Hemoglobin 30.4 Mean Corpuscular Hemoglobin Concent 34.3 Red Cell Distribution Width 12.8 Platelet Count 278 Mean Platelet Volume 12.0 H Neutrophils % 58.0 Lymphocytes % 31.9 Monocytes % 7.8 Eosinophils % 1.4 Basophils % 0.7 Nucleated Red Blood Cells % 0.0 Neutrophils # (Manual) 3.4 Lymphocytes # 1.9 Monocytes # 0.5 Eosinophils # 0.1 Basophils # 0.0 Nucleated Red Blood Cells # 0.0 Sodium Level 142 Potassium Level 4.5 Chloride Level 102 Carbon Dioxide Level 27 Anion Gap 18 H Blood Urea Nitrogen 13 Creatinine 0.61 Glucose Level 95 Hemoglobin A1c 5.5 Calcium Level 9.2 Phosphorus Level 4.0 Magnesium Level 1.8 Triglycerides Level 73 Cholesterol Level 174 LDL Cholesterol, Calculated 100 HDL Cholesterol 59 Cholesterol/HDL Ratio 2.9 Thyroid Stimulating Hormone (TSH) 2.650 Medications Medications Current Medications Miscellaneous Information (* Miscellaneous Pharmacy Order) HOLD all METFORMIN ... ONCE XX ; Start 05/04/17 at 14:30; Stop 05/06/17 at 14:29 Al Hydrox/Mg Hydrox/Simethicone (Mag-Al Plus) 30 ml Q4H PRN PO GASTROINTESTINAL UPSET; Start 05/04/17 at 14:30 Aspirin (Aspirin) 81 mg DAILY PO Last administered on 05/05/17 09:00; Admin Dose 81 MG; Start 05/05/17 at 09:00 Ondansetron HCl (Zofran Inj) 4 mg Q6H PRN IV NAUSEA AND/OR VOMITING; Start at 16:00 Acetaminophen (Tylenol Tab) 650 mg Q6H PRN PO PAIN LEVEL 1-3 OR FEVER Last administered on 05/05/17 05:52; Admin Dose 650 MG; Start 05/04/17 at 16:00 Acetaminophen/ Hydrocodone Bitart (Alto (5/325)) 1 tab Q6H PRN PO MODERATE PAIN LEVEL 4-6; Start 05/04/17 at 16:00 Morphine Sulfate (morphine) 2 mg Q4H PRN IV SEVERE PAIN LEVEL 7-10; Start 05/04 at 16:00 Docusate Sodium (Colace) 100 mg Q12H PRN PO CONSTIPATION; Start 05/04/17 at 16: 00 Magnesium Hydroxide (Milk Of Mag) 30 ml DAILY PRN PO CONSTIPATION; Start at 16:00 Sodium Biphosphate/ Sodium Phosphate (Fleet Enema) 133 ml DAILY PRN NC CONSTIPATION; Start 05/04/17 at 16:00 Lorazepam (Ativan) 0.5 mg Q6H PRN IV ANXIETY; Start 05/04/17 at 16:00 Hydralazine HCl (Apresoline) 10 mg Q6H PRN IV ELEVATED BLOOD PRESSURE; Start at 16:00 Nitroglycerin (Nitroglycerin (Sl Tab) 0.4 Mg) 1 tab Q5M PRN SL ANGINA; Start at 16:00 Harvey Holt DO May 05, 2017 14:30
== END 2017-05-05 16:15 | disposition home or self-care (01) | DRG 287 ==
LOC: E/R 12:34 → CCL 13:21 → SDS 13:21 → TEL 17:05 → CCL 17:05
PROVIDERS: ADMIT Hospitalist; ATTEND Hospitalist
PROC: B2101ZZ Fluoroscopy of Single Coronary Artery using Low Osmolar Contrast (ICD-10-PCS; 2017-05-04)
PROC: B2151ZZ Fluoroscopy of Left Heart using Low Osmolar Contrast (ICD-10-PCS; 2017-05-04)
PROC: 4A023N7 Measurement of Cardiac Sampling and Pressure, Left Heart, Percutaneous Approach (ICD-10-PCS; principal; 2017-05-04 14:30)
DX: I25.10 Atherosclerotic heart disease of native coronary artery without angina pectoris (principal); R55 Syncope and collapse; R07.9 Chest pain, unspecified; E78.00 Pure hypercholesterolemia, unspecified; E78.5 Hyperlipidemia, unspecified; M54.2 Cervicalgia; Z79.82 Long term (current) use of aspirin
CPT/HCPCS: 36415; 70450; 71010; 80048; 80061; 82550; 82553; 83036; 83735; 84100; 84439; 84443; 84484; 85025; 85610; 85730; 93005; 93306; 93458; 93880; C1769; C1887; C1894; J1644; J2250; J2270; J3010; Q9967

== ENCOUNTER 2017-12-11 21:17 | Observation (INO) | END 2017-12-14 13:12 | disposition home or self-care (01) ==